=== PATIENT | female | born 1945 | race Hispanic/Latino ===

== ENCOUNTER 2021-06-13 15:27 | Emergency (ER) | payer MEDICARE, OTHER ==
[~2021-06-13] VITALS: Ht 147.3 cm; Wt 57.2 kg
[~2021-06-13 15:27] MED LIST: CALCIUM 600 +1 EAC2 PO
[2021-06-13] MEDS ORDERED: TRAMADOL HCL 50 MG TAB PO ONE (17:00)
[2021-06-13] MEDS ORDERED: CIPRO500 MG PO (19:13)
[2021-06-13] MEDS ORDERED: ULTRAM 50MG50 MG PO (19:13)
== END 2021-06-13 19:13 | disposition home or self-care (01) ==
LOC: ER 16:57
DX: R07.89 Other chest pain (principal); M54.2 Cervicalgia; R10.30 Lower abdominal pain, unspecified; W18.39XA Other fall on same level, initial encounter; Y93.01 Activity, walking, marching and hiking; Y92.008 Other place in unspecified non-institutional (private) residence as the place of occurrence of the external cause; I10 Essential (primary) hypertension
CPT/HCPCS: 70450; 71250; 72125; 74176; 99283

== ENCOUNTER 2022-11-15 08:47 | Emergency (ER) | payer MEDICARE ==
[~2022-11-15] VITALS: Ht 147.3 cm; Wt 57.2 kg
[~2022-11-15 08:47] MED LIST changes: +CIPRO500 MG PO; +ULTRAM 50MG50 MG PO
[2022-11-15] MEDS ORDERED: KETOROLAC TROMETHAMINE 30 MG/ML VIAL IV STA (09:16)
[2022-11-15] MEDS ORDERED: IOPAMIDOL 370 MG/ML 100 ML INFUS..BTL INJ ONE ×2 (10:00→13:31)
[2022-11-15 11:39] LABS: BASOPHILS # (AUTO) 0.1 (0.0-0.1); BASOPHILS % 0.7 % (0.0-1.0); EOSINOPHILS # (AUTO) 0.1 (0.0-0.4); EOSINOPHILS % 0.7 % (0.0-6.0); HEMOGLOBIN 12.3 g/dL (12.0-16.0); LYMPHOCYTES # (AUTO) 2.7 (1.0-3.2); LYMPHOCYTES % 26.8 % (18.0-39.1); MEAN CORPUSCULAR HEMOGLOBIN 31.2 pg (28-32); MEAN CORPUSCULAR HGB CONC 32.4 g/dL (31-35); MEAN CORPUSCULAR VOLUME 96.4 fL (81-99); MONOCYTES # (AUTO) 1.1 (0.2-0.8); MONOCYTES % 11.2 % (4.4-11.3); NEUTROPHILS # (AUTO) 5.9 (2.1-6.9); NEUTROPHILS % 60.1 % (38.7-80.0); PLATELET COUNT 236 x10e3/uL (140-360); RED BLOOD COUNT 3.94 x10e6/uL (3.6-5.1); RED CELL DISTRIBUTION WIDTH 14.4 % (11.7-14.4)
[2022-11-15 11:54] LABS: ALBUMIN 3.4 g/dL (3.5-5.0); ALBUMIN/GLOBULIN RATIO 0.9 (0.8-2.0); ANION GAP 12.9 mmol/L (8-16); CALCIUM 9.2 mg/dL (8.4-10.2); CREATININE, SERUM 0.72 mg/dL (0.57-1.11); POTASSIUM 3.9 mmol/L (3.5-5.1)
[2022-11-15 13:27] LABS: CLARITY,URINE CLEAR (CLEAR); COLOR,URINE YELLOW (YELLOW); KETONES,URINE NEGATIVE (NEGATIVE); LEUKOCYTE ESTERASE ,URINE SMALL (NEGATIVE); NITRITE,URINE NEGATIVE (NEGATIVE); PROTEIN,URINE DIPSTICK TRACE (NEGATIVE); URINE UROBILINOGEN 0.2 mg/dL (0.2 - 1)
[2022-11-15 13:29] LABS: BACTERIA,URINE MODERATE /HPF
[2022-11-15 13:30] LABS: EPITHELIAL CELLS,URINE MANY /LPF
[2022-11-15] MEDS ORDERED: CEPHALEXIN500 MG PO (13:33)
[2022-11-15] MEDS ORDERED: NAPROXEN250 MG PO (13:33)
[2022-11-15 13:46] VITALS: O2SAT 99
== END 2022-11-15 13:49 | disposition home or self-care (01) ==
LOC: ER 08:53
DX: M54.2 Cervicalgia (principal); M79.18 Myalgia, other site; N39.0 Urinary tract infection, site not specified; I10 Essential (primary) hypertension; R94.31 Abnormal electrocardiogram [ECG] [EKG]
CPT/HCPCS: 36415; 70491; 71045; 80053; 81001; 84484; 85025; 93005; 99284; J1885; Q9967